=== PATIENT | female | born 1985 | race Caucasian/White ===

== ENCOUNTER 2018-09-12 20:31 | Emergency (ER) | payer MEDICARE ==
[~2018-09-12] VITALS: Ht 165.1 cm; Wt 75.0 kg
[2018-09-12] MEDS ORDERED: ACETAMINOPHEN 325MG TABLET PO ONE (23:45)
[2018-09-13 00:42] VITALS: BP 111/60
== END 2018-09-13 00:42 | disposition home or self-care (01) ==
LOC: ER 20:31
DX: J32.9 Chronic sinusitis, unspecified (principal)
CPT/HCPCS: 99283